=== PATIENT | male | born 1990 | race Caucasian/White ===

== ENCOUNTER 2017-11-19 16:28 | Emergency (ER) | payer OTHER ==
[~2017-11-19] VITALS: Ht 180.3 cm; Wt 87.4 kg
[2017-11-19] MEDS ORDERED: KETOROLAC 30 MG/1 ML IM ONE (17:30)
[2017-11-19] MEDS ORDERED: KETOROLAC 30 MG/1 ML ONE (17:47)
[2017-11-19 18:12] VITALS: BP 116/74
== END 2017-11-19 18:14 | disposition home or self-care (01) ==
LOC: ED 18:00
DX: K08.89 Other specified disorders of teeth and supporting structures (principal)
CPT/HCPCS: 96372; 99283; J1885